=== PATIENT | female | born 1960 | race Caucasian/White ===

== ENCOUNTER 2017-09-01 14:12 | Emergency (ER) | payer OTHER ==
[2017-09-01] MEDS ORDERED: ANTIVERT PO ONE (17:14)
--- NOTE | 2017-09-01 17:16 | Emergency Department Report ---
Chief Complaint: Headache Stated Complaint: DIZZINESS, HEADACH - HPI History of Present Illness: 56-year-old Greek female presents with one-day history of bitemporal headache, dizziness and some vertigo-like symptoms. She went to her PCP this morning, Tor Houser, who sent her in for further evaluation to "make sure I did not have a stroke and that my heart is okay." Translation services used. - ROS Review of Systems: Patient is positive for dizziness, vertigo-like symptoms, headache Patient is negative for slurred speech, motor deficits, chest pain, shortness of breath, fever - Exam Physical Exam: Patient is awake and alert and does not have any current focal, motor or sensory deficits and cranial nerves are intact. MSE screening note: Focused history and physical exam performed. Due to findings the following was ordered: I ordered a CBC, BMP, troponin, TSH, EKG and CT scan of the head without contrast. ED Disposition for MSE Condition: Stable
[2017-09-01 18:43] LABS: Basophils % (Auto) 0.5 % (0.0-1.8); Eosinophils # (Auto) 0.1 K/mm3 (0.0-0.4); Eosinophils % (Auto) 1.2 % (0.0-4.3); Hematocrit 42.9 % (30.3-42.9); Hemoglobin 14.4 gm/dl (10.1-14.3); Lymphocytes % (Auto) 32.1 % (13.4-35.0); Mean Corpuscular HGB Conc 34 % (30-34); Mean Corpuscular Hemoglobin 31 pg (28-32); Mean Corpuscular Volume 93 fl (79-97); Monocytes # (Auto) 0.3 K/mm3 (0.0-0.8); Monocytes % (Auto) 5.4 % (0.0-7.3); Platelet Count 299 K/mm3 (140-440); Red Blood Count 4.62 M/mm3 (3.65-5.03); Red Cell Distribution Width 12.7 % (13.2-15.2)
[2017-09-01 18:57] LABS: BUN/Creatinine Ratio 25; Blood Urea Nitrogen 10 mg/dL (7-17); Calcium 9.3 mg/dL (8.4-10.2); Hemolysis Index 80
--- NOTE | 2017-09-01 19:47 | Cat Scan Report ---
FINAL REPORT EXAM: CT HEAD/BRAIN WO CON HISTORY: Headache TECHNIQUE: Standard unenhanced CT of the head at 5.0 millimeter axial increments. PRIORS: None. FINDINGS: The ventricular system is normal in size and configuration. There is mild frontal lobe atrophy bilaterally. Symmetrical basal ganglia calcifications are present bilaterally. There is no evidence for mass lesion, mass effect, midline shift, acute intracranial hemorrhage, or acute ischemia/ infarction. No evidence for acute skull fracture is seen. No abnormality in the overlying scalp soft tissues is seen. Visualized paranasal sinuses are clear. IMPRESSION: Mild frontal lobe atrophy bilaterally. No acute intracranial process noted.
--- NOTE | 2017-09-01 19:50 | Emergency Department Report ---
ED Headache HPI - General Chief Complaint: Headache Stated Complaint: DIZZINESS, HEADACH Time Seen by Provider: 09/01/17 19:49 Source: patient Exam Limitations: no limitations - History of Present Illness Initial Comments: Translation service 56-year-old [place] female presents with one-day history of bitemporal headache, dizziness and some vertigo-like symptoms. She went to her PCP this morning, Tor Ibanez, who sent her in for further evaluation to "make sure I did not have a stroke and that my heart is okay." ZHAO located frontally and aching. Pain 6/10. Denies nausea or vomiting, fever chills, neck pain or stiffness. Denies any abdominal or back pain. Patient has a history of high blood pressure. Not any chest pain or shortness of breath. Denies any near-syncope or syncopal episode. [id number] pain medication taken without complete relief. Nothing makes it better nothing makes it worse. Headache is intermittent and is being going on for the past 2 weeks with left-sided arm numbness since 8 AM this morning. Timing/Duration: waxing and waning, other (2 weeks) Quality: moderate Head Injury Location: frontal Recent Head Trauma: occasional headaches Modifying Factors: improves with: movement, rest Associated Symptoms: numbness in legs/feet (left side, arm and dizziness). denies: confusion, fatigue, facial pain, fever/chills, loss of consciousness, nausea/vomiting, nasal congestion, nasal drainage, seizures, sinus infection, stiff neck, vision changes, weakness Allergies/Adverse Reactions: Allergies No Known Allergies Allergy (Unverified 09/01/17 14:29) Home Medications: Ambulatory Orders Codeine/Butalbital/ASA/Caffein [Fiorinal with Codeine #3 Cap] 1 each PO Q8H PRN #15 capsule 09/01/17 Meclizine [Antivert] 25 mg PO Q8H PRN #15 tablet 09/01/17 Ondansetron [Zofran Odt] 4 mg PO Q8H PRN #12 tab.rapdis 09/01/17 ED Review of Systems ROS: Stated complaint: DIZZINESS, HEADACH Other details as noted in HPI Comment: All other systems reviewed and negative Constitutional: no symptoms reported, weakness Eyes: denies: eye pain, vision change ENT: denies: ear pain, throat pain Respiratory: no symptoms reported Cardiovascular: denies: chest pain, palpitations, dyspnea on exertion, orthopnea , edema, syncope, paroxysmal nocturnal dyspnea Gastrointestinal: denies: abdominal pain, nausea, vomiting, diarrhea, constipation Musculoskeletal: denies: back pain, joint swelling, arthralgia, myalgia Skin: denies: rash Neurological: headache, numbness, other (dizziness). denies: weakness, paresthesias, confusion, abnormal gait ED Past Medical Hx - Past Medical History Previous Medical History?: Yes Hx Hypertension: Yes - Surgical History Past Surgical History?: No - Family History Family history: hypertension - Social History Smoking Status: Never Smoker Substance Use Type: None - Medications Home Medications: Home Medications Medication Instructions Recorded Confirmed Last Taken Type Codeine/Butalbital/ASA/Caffein 1 each PO Q8H PRN #15 capsule 09/01/17 Unknown Rx [Fiorinal with Codeine #3 Cap] Meclizine [Antivert] 25 mg PO Q8H PRN #15 tablet 09/01/17 Unknown Rx Ondansetron [Zofran Odt] 4 mg PO Q8H PRN #12 tab.rapdis 09/01/17 Unknown Rx ED Physical Exam - General Limitations: Language Barrier General appearance: alert, in no apparent distress - Head Head exam: Present: atraumatic, normocephalic, normal inspection - Expanded Head Exam Expanded Head exam: Absent: laceration, abrasion, contusion, hematoma, racoon eyes, pizano's sign, general tenderness, tenderness of temporal artery, CSF rhinorrhea , CSF otorrhea - Eye Eye exam: Present: normal appearance, PERRL, EOMI. Absent: scleral icterus, conjunctival injection, nystagmus, periorbital swelling, periorbital tenderness Pupils: Present: normal accommodation - ENT ENT exam: Present: normal exam, normal orophraynx, mucous membranes moist - Neck Neck exam: Present: normal inspection, full ROM, other (no C-spine tenderness). Absent: tenderness, meningismus, lymphadenopathy, thyromegaly - Respiratory Respiratory exam: Present: normal lung sounds bilaterally. Absent: respiratory distress, chest wall tenderness, accessory muscle use - Cardiovascular Cardiovascular Exam: Present: regular rate, normal rhythm, normal heart sounds. Absent: systolic murmur, diastolic murmur - GI/Abdominal GI/Abdominal exam: Present: soft, normal bowel sounds. Absent: distended, tenderness, guarding, rebound, rigid, organomegaly, mass, bruit, pulsatile mass , hernia - Extremities Exam Extremities exam: Present: normal inspection, full ROM, normal capillary refill , other (no clubbing, cyanosis or edema. Pulses 2+ distal extremities. No neurovascular compromise.). Absent: tenderness, pedal edema, joint swelling, calf tenderness - Expanded Upper Extremity Exam Left General: Present: normal inspection Shoulder Exam: Present: normal inspection, full ROM. Absent: tenderness, swelling, abrasion, laceration, ecchymosis, deformity, crepidus, erythema, tenderness over AC joint Upper Arm exam: Present: normal inspection, full ROM. Absent: tenderness, swelling, abrasion, laceration, ecchymosis, deformity, crepidus, dislocation, erythema Elbow exam: Present: normal inspection, full ROM. Absent: tenderness, swelling , abrasion, laceration, ecchymosis, deformity, crepidus, dislocation, erythema, effusion, pain w/ pronation/supination, tenderness over radial head Forearm Wrist exam: Present: normal inspection, full ROM. Absent: tenderness, swelling, abrasion, laceration, ecchymosis, deformity, crepidus, dislocation, erythema, tenderness over anatomical snuff box, pain with axial thumb loading Hand Wrist exam: Present: normal inspection, full ROM. Absent: tenderness, swelling, abrasion, laceration, ecchymosis, deformity, crepidus, dislocation, erythema, amputation, nail avulsion, subungual hematoma Neuro motor exam: Present: wrist extension intact, thumb opposition intact, thumb IP flexion intact, thumb adduction intact, fingers 2-5 abduction intact Neurosensory exam: Present: 2-point discrimination, radial nerve intact, ulnar nerve intact, median nerve intact Vascular: Present: normal capillary refill, radial pulse, brachial pulse, ulnar pulse. Absent: vascular compromise, Pallo, pulse deficit radial art, pulse deficit ulnar art, pulse deficit brachial art - Back Exam Back exam: Present: normal inspection, full ROM, other (Ambulates without any difficulties). Absent: tenderness, CVA tenderness (R), CVA tenderness (L), muscle spasm, paraspinal tenderness, vertebral tenderness, rash noted - Neurological Exam Neurological exam: Present: alert, oriented X3, normal gait, reflexes normal. Absent: motor sensory deficit - Expanded Neurological Exam Expanded Neurological exam: Absent: innattentive, memory loss-remote event, memory loss- recent event, ataxia, receptive aphasia, expressive aphasia, total aphasia, tremor, protecting the airway Patient oriented to: Present: person, place, time Speech: Present: fluid speech Cranial nerves: EOM's Intact: Normal, Gag Reflex: Normal, Tongue Deviation: Normal, Nystagmus: Normal, Facial Sensation: Normal Cerebellar function: Romberg: Normal Upper motor neuron: Pronator Drift: Normal, Sensory Extinction: Normal Sensory exam: Upper Extremity Light Touch: Normal, Upper Extremity Temperature: Normal, UE 2 Point Discrimination: Normal, Lower Extremity Light Touch: Normal, Lower Extremity Temperature: Normal, LE 2 Point Discrimination: Normal Motor strength exam: RUE: 5, LUE: 5, RLE: 5, LLE: 5 DTR: bicep (R): 2+, bicep (L): 2+, tricep (R): 2+, tricep (L): 2+, knee (R): 2+ , knee (L): 2+, ankle (R): 2+, ankle (L): 2+ Best Eye Response (Dusty): (4) open spontaneously Best Motor Response (Dusty): (6) obeys commands Best Verbal Response (Mckinney): (5) oriented Mckinney Total: 15 - Psychiatric Psychiatric exam: Present: normal affect, normal mood - Skin Skin exam: Present: warm, dry, intact, normal color. Absent: rash ED Course Vital Signs 09/01/17 20:26 Temperature 98.0 F Pulse Rate 63 Respiratory 16 Rate Blood Pressure 153/85 [Right] O2 Sat by Pulse 100 Oximetry - Reevaluation(s) Reevaluation #1: 09/01/17 20:13 Patient had uneventful stay in emergency room. Symptoms resolved with Antivert ED Medical Decision Making - Lab Data Result diagrams: 09/01/17 18:11 09/01/17 18:11 Lab Results 09/01/17 09/01/17 09/01/17 Range/Units 18:11 18:11 18:11 WBC 6.2 (4.5-11.0) K/mm3 RBC 4.62 (3.65-5.03) M/mm3 Hgb 14.4 H (10.1-14.3) gm/dl Hct 42.9 (30.3-42.9) % MCV 93 (79-97) fl MCH 31 (28-32) pg MCHC 34 (30-34) % RDW 12.7 L (13.2-15.2) % Plt Count 299 (140-440) K/mm3 Lymph % (Auto) 32.1 (13.4-35.0) % Wolfe % (Auto) 5.4 (0.0-7.3) % Eos % (Auto) 1.2 (0.0-4.3) % Baso % (Auto) 0.5 (0.0-1.8) % Lymph # 2.0 (1.2-5.4) K/mm3 Wolfe # 0.3 (0.0-0.8) K/mm3 Eos # 0.1 (0.0-0.4) K/mm3 Baso # 0.0 (0.0-0.1) K/mm3 Seg Neutrophils % 60.8 (40.0-70.0) % Seg Neutrophils # 3.8 (1.8-7.7) K/mm3 Sodium 142 (137-145) mmol/L Potassium 4.5 (3.6-5.0) mmol/L Chloride 102.7 (98-107) mmol/L Carbon Dioxide 25 (22-30) mmol/L Anion Gap 19 mmol/L BUN 10 (7-17) mg/dL Creatinine 0.4 L (0.7-1.2) mg/dL Estimated GFR > 60 ml/min BUN/Creatinine Ratio 25 % Glucose 85 (65-100) mg/dL Calcium 9.3 (8.4-10.2) mg/dL Troponin T < 0.010 (0.00-0.029) ng/mL TSH 1.730 (0.270-4.200) mlU/mL - EKG Data -: EKG Interpreted by Me (Dr. Kris purcell) EKG shows normal: sinus rhythm (59 bpm) Rate: normal - EKG Data Interpretation: no acute changes - Radiology Data Radiology results: report reviewed CT scan of the head reveals mild frontal lobe after P bilaterally. No acute intracranial processes. - Medical Decision Making [employer] service utilized ED course: Agent here sent from doctor's office for evaluation for headache it' s been ongoing for 2 weeks. Patient was given Antivert 25 mg by mouth for dizziness which resolved her symptoms. Based on NIH scale her score is 0. CT scan of the head negative for any intercranial process. Patient is neurologically intact and repeat neurological exam is normal. Patient has no headache at present and her lab work was stable. I discussed CT scan results, EKG and lab work with patient and she voiced understanding. I discussed with her she needs to follow back up with her primary care physician in one to 2 days follow-up headache. Patient with vertigo, acute headache and will be discharged home with prescription for Antivert and Fioricet. Patient will also be referred to neurologist. Patient discharged home in stable condition with prescription for Antivert, Fioricet and Zofran. Critical care attestation.: If time is entered above; I have spent that time in minutes in the direct care of this critically ill patient, excluding procedure time. ED Disposition Clinical Impression: Vertigo, Left arm numbness, Nausea alone Headache Qualifiers: Headache type: unspecified Headache chronicity pattern: acute headache Intractability: not intractable Qualified Code(s): R51 - Headache Disposition: DC-01 TO HOME OR SELFCARE Is pt being admited?: No Does the pt Need Aspirin: No Condition: Stable Instructions: Vertigo (ED), Acute Headache (ED), Paresthesia (ED) Additional Instructions: Please follow up with the primary care physician in one to 2 days. Pt is referred to neurology referral and discharge instruction paperwork. Call tomorrow to schedule an appointment for follow-up visit Increase her fluid intake Take Antivert which will help with your dizziness Takes Uristat which she'll help with the headache. Pls do not drive or operate heavy machinery while taking Fioricet as this medication causes drowsiness Prescriptions: Codeine/Butalbital/ASA/Caffein [Fiorinal with Codeine #3 Cap] 1 each PO Q8H PRN #15 capsule PRN Reason: Headache Meclizine [Antivert] 25 mg PO Q8H PRN #15 tablet PRN Reason: Vertigo Ondansetron [Zofran Odt] 4 mg PO Q8H PRN #12 tab.rapdis PRN Reason: Nausea Referrals: ELMER IBANEZ MD [Staff Physician] - 09/02/17 FLOWER LUGO MD [Staff Physician] - 09/03/17 Forms: Work/School Release Form(ED) Print Language: HEBREW
[2017-09-01 20:27] VITALS: BP 153/85
== END 2017-09-01 20:55 | disposition home or self-care (01) ==
LOC: ED 14:12
DX: R42 Dizziness and giddiness (principal); R51 Headache; R11.0 Nausea; R20.0 Anesthesia of skin; I10 Essential (primary) hypertension
CPT/HCPCS: 36415; 70450; 80048; 84443; 84484; 85025; 93005; 93010